=== PATIENT | male | born 1990 | race Hispanic/Latino ===

== ENCOUNTER 2020-12-04 23:30 | Emergency (ER) | payer OTHER ==
[~2020-12-04] VITALS: Ht 185.4 cm; Wt 104.3 kg
[2020-12-05] MEDS ORDERED: IBUPROFEN 400 MG TAB PO STA (00:05)
[2020-12-05] MEDS ORDERED: MOTRIN800 MG PO (00:13)
[2020-12-05] MEDS ORDERED: CYCLOBENZAPRINE5 MG PO (00:13)
[2020-12-05] MEDS ORDERED: IBUPROFEN 400 MG TAB ONE (00:15)
[2020-12-05] MEDS ORDERED: CYCLOBENZAPRINE HCL 10 MG TAB PO ONE (00:15)
== END 2020-12-05 00:35 | disposition home or self-care (01) ==
LOC: FSED 23:59
DX: S33.5XXA Sprain of ligaments of lumbar spine, initial encounter (principal); V43.52XA Car driver injured in collision with other type car in traffic accident, initial encounter; Y92.488 Other paved roadways as the place of occurrence of the external cause
CPT/HCPCS: 99283